=== PATIENT | male | born 1980 | race Two or more races ===

== ENCOUNTER 2017-11-16 00:58 | Emergency (ER) | payer SELFPAY ==
[~2017-11-16] VITALS: Ht 182.9 cm; Wt 141.5 kg
[2017-11-16] MEDS ORDERED: ONDANSETRON HCL/PF 4 MG/2 ML VIAL ONE ×2 (01:01→01:30)
--- NOTE | 2017-11-16 01:08 | NUR ---
PT BIB RA WITH A C/O ETOH. PT IS ACTIVELY VOMITTING AND INTERMITTENTLY WAKES UP WITH MOVEMENT. PT IS SLIGHTLY AGGRESSIVE WHEN HE IS AROUSED. PT IS ON THE MONITOR AND CONTINUOUS PULSE OX. PT WAS ADJUSTED IN THE BED AND PLACED IN SEMI NAPIER POSITION. PT PLACED ON 2L O2 VIA NC. PT IS ON THE MONITOR AND CONTINOUS PULSE OX.
[2017-11-16] MEDS ORDERED: ONDANSETRON HCL/PF - ER 4 MG/2 ML VIAL IV ONE (01:30)
[2017-11-16] MEDS ORDERED: IV NS 0.9% 1,000 ML BAG IV ONE ×2 (01:30→04:30)
[2017-11-16] MEDS ORDERED: ONDANSETRON HCL/PF - ER 4 MG/2 ML VIAL IM ONE (01:30)
[2017-11-16 01:53] LABS: BASOPHILS # (AUTO) 0.1 /CMM (0.0-0.2); BASOPHILS % (AUTO) 0.4 % (0.0-2.0); EOSINOPHILS % (AUTO) 0.2 % (0.0-6.0); HEMATOCRIT 42 % (39-51); LYMPHOCYTES # (AUTO) 1.9 /CMM (0.8-4.8); LYMPHOCYTES % (AUTO) 13.3 % (20.0-44.0); MEAN CORPUSCULAR HGB CONC 33 g/dl (31.0-36.0); MEAN CORPUSCULAR VOLUME 86 fL (80-96); MONOCYTES # (AUTO) 0.4 /CMM (0.1-1.30); MONOCYTES % (AUTO) 2.9 % (2.0-12.0); NEUTROPHILS # (AUTO) 11.7 /CMM (1.8-8.9); NEUTROPHILS % (AUTO) 83.2 % (43.0-81.0); PLATELET COUNT (AUTO) 321 /CMM (150-450); RED BLOOD CELL COUNT(AUTO) 4.89 MIL/uL (4.5-6.0)
[2017-11-16 02:03] LABS: CALCIUM, SERUM 8.9 mg/dL (8.5-10.1); CREATININE 1.4 mg/dL (0.6-1.3); POTASSIUM 3.9 mmol/L (3.5-5.1)
--- NOTE | 2017-11-16 04:30 | NUR ---
PT WAS YELLING THAT HE HAD TO GO "PEE [facility]EE". PT WAS GIVEN A URINAL, BUT WAS NOT ABLE TO USE IT WITHOUT ASSISTANCE. PT STATED THAT HE WAS UNABLE TO URINATE. PT STATED THAT IT HURT. DR. JUNG WAS NOTIFIED. IN AND OUT UNDERWOOD CATH WAS ORDERED. PT AGREED.
--- NOTE | 2017-11-16 04:40 | NUR ---
IN AND OUT CATH DONE. APPROX 1400ML YELLOW URINE OUTPUT NOTED. PT STATED THAT HIS NAME WAS SOLOMON ALVAREZ. PT WAS STILL QUITE INTOXICATED AND WAS SLURRING HIS WORDS. PT IS ON THE MONITOR AND CONITNUOUS PULSE OX. WILL CONTINUE TO MONITOR THE PT. VSS
[2017-11-16 04:55] LABS: APPEARANCE,URINE CLEAR (CLEAR); BILIRUBIN,URINE NEGATIVE (NEGATIVE); BLOOD, URINE TRACE Ery/uL (NEGATIVE); COLOR,URINE YELLOW (YELLOW); KETONES,URINE NEGATIVE (NEGATIVE); LEUKOCYTE ESTERASE ,URINE NEGATIVE (NEGATIVE); NITRITE, URINE NEGATIVE (NEGATIVE); PROTEIN,URINE NEGATIVE (NEGATIVE); UGLUCOSE NEGATIVE (NEGATIVE); UROBILINOGEN,URINE 0.2 EU/dL (0.2)
[2017-11-16 05:01] LABS: BACTERIA,URINE None seen /HPF (None Seen); RBC,URINE 0-2 /HPF (0-2); SQUAMOUS EPITHELIAL CELL,UR Few /HPF (None Seen); WBC,URINE 0-2 /HPF (0-3)
--- NOTE | 2017-11-16 05:31 | NUR ---
PT APPEARS TO BE SLEEPING SOUNDLY. VSS.
--- NOTE | 2017-11-16 06:26 | NUR ---
PT APPEARS TO BE SLEEPING SOUNDLY WITH NO S/S OF PAIN OR DISTRESS. VSS
--- NOTE | 2017-11-16 07:08 | NUR ---
REPORT GIVEN TO BILLY MARKS FOR FAHAD.
[2017-11-16 07:35] VITALS: BP 125/72
--- NOTE | 2017-11-16 07:40 | NUR ---
DR FARRELL AT BEDSIDE FOR RE-EVAL
--- NOTE | 2017-11-16 07:44 | NUR ---
IV removed. Catheter intact and site benign. Pressure and 4x4 applied to site. No bleeding noted.Patient discharged to home in stable condition. Written and verbal after care instructions given. Patient verbalizes understanding of instruction.
--- NOTE | 2017-11-16 07:48 | NUR ---
AMBULATED TO WITH STEADY GAIT TO WAIT FOR HIS RIDE
== END 2017-11-16 07:50 | disposition home or self-care (01) ==
LOC: ER 01:00 → EDBD 01:00 → ER 07:50
DX: R41.82 Altered mental status, unspecified (principal)
CPT/HCPCS: 36415; 71045-TC; 80048-TC; 80305; 81000-TC; 85025-TC; A4606; G0480; J2405; J7030; Z7610